=== PATIENT | female | born 2000 | race Asian ===

== ENCOUNTER 2021-10-07 18:38 | Emergency (ER) | payer OTHER, BC ==
[2021-10-07 19:15] VITALS: BP 148/82
[2021-10-07] MEDS ORDERED: IPRATROPIUM/ALBUTEROL 3 ML NEB INH STA (20:43)
--- NOTE | 2021-10-07 21:02 | ED Physician Documentation ---
History of Present Illness - Stated complaint Stated Complaint: COUGH,CHEST TIGHT - Chief complaint Chief Complaint: Resp - Additonal information Additional information: 21-year-old female presents to the emergency department for evaluation of 4 to 5 days cough and wheeze. She has a history of asthma and has been using her inhaler nearly every hour with a spacer without results. No fevers. Cough is dry. She did screen for COVID-19 3 days ago and was negative at home. Non- smoker. Review of Systems Constitutional: denies: Fever, Chills Cardiac: denies: Chest pain / pressure, Palpitations Respiratory: reports: Dyspnea, Wheezing GI: reports: Reviewed and negative : denies: Dysuria, Frequency Skin: reports: Reviewed and negative PD PAST MEDICAL HISTORY - Past Medical History Past Medical History: Yes Respiratory: Asthma - Present Medications Home Medications: Ambulatory Orders Medication Instructions Recorded Confirmed Albuterol Sulf [Ventolin Hfa 1 - 2 puffs INH Q4HR PRN #1 inhaler 10/07/21 Inhaler] predniSONE [Deltasone] 40 mg PO DAILY 4 Days #8 tablet 10/07/21 - Allergies Allergies/Adverse Reactions: Allergies Allergy/AdvReac Type Severity Reaction Status Date / Time cephalexin Allergy Hives Verified 10/07/21 19:09 Sulfa (Sulfonamide Allergy Hives Verified 10/07/21 19:09 Antibiotics) - Social History Does the pt smoke?: No Smoking Status: Never smoker - Immunizations Immunizations are current?: Yes PD ED PE NORMAL - General General: Alert and oriented X 3, No acute distress - HEENT HEENT: Atraumatic, Moist mucous membranes - Neck Neck: Supple, no meningeal sign, No adenopathy, No JVD - Cardiac Cardiac: RRR, No murmur - Respiratory Respiratory: No respiratory distress. No: Clear bilaterally (diffuse scattered expiratory wheeze) - Abdomen Abdomen: Normal bowel sounds, Soft - Back Back: No CVA TTP, No spinal TTP - Derm Derm: Normal color, Warm and dry, No rash - Extremities Extremities: No deformity, No tenderness to palpate - Neuro Neuro: Alert and oriented X 3, range master 2-12 intact Eye Opening: Spontaneous Motor: Obeys Commands Verbal: Oriented GCS Score: 15 - Psych Psych: Normal mood Results - Vitals Vitals: Vital Signs - 24 hr 10/07/21 10/07/21 19:05 21:15 Temperature 36.4 C L Heart Rate 108 H 96 Respiratory 16 Rate Blood Pressure 148/82 H O2 Saturation 98 Oxygen O2 Source Room air - Rads (name of study) cxr Radiology: EMP read indepedently (No acute cardiopulmonary process) PD MEDICAL DECISION MAKING - ED course Complexity details: reviewed results, re-evaluated patient, d/w patient ED course: 21-year-old female presents emergency department for evaluation of 4 to 5 days cough and wheeze. Does have a longstanding history of asthma. She has tested negative for COVID twice. Screening chest x-ray per my interpretation is without acute focal consolidations or findings of pneumonia. Is she did present without hypoxia but had diffuse faint expiratory wheeze. She was given a DuoNeb with marked resolution of symptoms. She will be started on a 5-day course of prednisone for acute asthma exacerbation. We will continue close follow-up with PCP. Emergent return precautions discussed. Departure - Departure Disposition: 01 Home, Self Care Clinical Impression: Asthma with acute exacerbation in adult Qualifiers: Asthma severity: moderate Asthma persistence: persistent Qualified Code(s): J45.41 - Moderate persistent asthma with (acute) exacerbation Condition: Stable Record reviewed to determine appropriate education?: Yes Prescriptions: Albuterol Sulf [Ventolin Hfa Inhaler] 1 - 2 puffs INH Q4HR PRN #1 inhaler PRN Reason: Shortness Of Air/Wheezing predniSONE [Deltasone] 40 mg PO DAILY 4 Days #8 tablet Comments: Rosalba li are seen today in the emergency department for cough congestion shortness of air and wheeze. Your chest x-ray is normal. There are no findings of pneumonia. However you are a little bit wheezy which I think is consistent with a asthma exacerbation. This is most likely due to a viral upper respiratory infection. 9 in order to help manage her asthma we have given you a dose of prednisone here in the emergency department. A prescription has been sent for an additional 4 days to the [facility] in [place]. We have also sent a prescription for a new albuterol inhaler. Please make sure that you are always using this with a spacer. With the steroids I would expect reduced shortness of air and need for the inhaler over the next few days. If despite using the steroids you are having increased shortness of air, develop any fevers or have worsening cough then please return to the ER for second evaluation
[2021-10-07] MEDS ORDERED: predniSONE 20 MG TABLET PO STA (21:21)
[2021-10-07] MEDS ORDERED: oxyCODONE 5 MG TABLET PO STA (21:53)
--- NOTE | 2021-10-07 22:47 | XRAY Report ---
PROCEDURE: Chest 1 View X-Ray INDICATIONS: asthma exacerbation TECHNIQUE: One view of the chest was acquired. COMPARISON: None. FINDINGS: Surgical changes and devices: None. Lungs and pleura: No pleural effusions or pneumothorax. Lungs are clear. Mediastinum: Mediastinal contours appear normal. Heart size is normal. Bones and chest wall: No suspicious bony lesions. Overlying soft tissues appear unremarkable. IMPRESSION: 1. No acute cardiopulmonary disease. Reviewed by: Chalino Reynaga MD on 10/07/2021 10:46 PM PDT Approved by: Chalino Reynaga MD on 10/07/2021 10:46 PM PDT Station ID: [id number]
== END 2021-10-07 22:03 | disposition home or self-care (01) ==
LOC: ED 18:38
DX: J45.41 Moderate persistent asthma with (acute) exacerbation (principal)
CPT/HCPCS: 71045; 94640; 99283; 99284; J7512